=== PATIENT | female | born 1990 | race Two or more races ===

== ENCOUNTER 2021-04-14 18:51 | Emergency (ER) | payer BC, OTHER ==
[~2021-04-14] VITALS: Ht 162.6 cm; Wt 108.9 kg
[2021-04-14] MEDS ORDERED: SODIUM CHLORIDE 0.9% 1,000 ML IV ONE (19:00)
[2021-04-14 19:28] LABS: Basophils # (auto) 0.1 10 ^3/uL (0-0.2); Basophils % (auto) 1.3 % (0.0-2.0); Eosinophils # (auto) 0 10 ^3/uL (0-0.8); Eosinophils % (auto) 0.2 % (0.0-7.0); Hematocrit 38.5 % (36.0-46.0); Hemoglobin 12.9 g/dL (12.2-16.2); Lymphocytes # (auto) 0.9 10 ^3/uL (0.4-5.4); Lymphocytes % (auto) 23.3 % (10.0-50.0); Mean Corpuscular Hemoglobin 28.7 pg (28.0-32.0); Mean Corpuscular Hgb Conc. 33.6 g/dL (32.0-36.0); Mean Corpuscular Volume 85.5 fL (80.0-100.0); Monocytes # (auto) 0.3 10 ^3/uL (0-1.3); Monocytes % (auto) 6.9 % (0.0-12.0); Neutrophils # (auto) 2.7 10 ^3/uL (1.6-8.6); Neutrophils % (auto) 68.3 % (37.0-80.0); Nucleated Red Blood Cells % 0.1 %; Red Cell Distribution Width 14.1 % (11.8-14.3); White Blood Cell 3.9 10^3/uL (4.4-10.8)
[2021-04-14 19:43] LABS: Albumin 2.8 g/dL (3.4-5.0); Calcium 8.7 mg/dL (8.5-10.1)
[2021-04-14 19:46] LABS: BUN/Creatinine Ratio 8.9; Bilirubin, Total 0.3 mg/dL (0.2-1.0); Total Protein 7.2 g/dL (6.4-8.2)
[2021-04-14 19:54] VITALS: BP 147/86
[2021-04-14] MEDS ORDERED: cefTRIAXone 1GM/50ML D5W 50 ML IV ONE (20:30)
[2021-04-14] MEDS ORDERED: POTASSIUM CHL 20 Meq TABLET PO ONE (20:30)
== END 2021-04-15 00:26 | disposition home or self-care (01) ==
LOC: ER 18:51
DX: O98.512 Other viral diseases complicating pregnancy, second trimester (principal); U07.1 COVID-19; E86.0 Dehydration; Z3A.19 19 weeks gestation of pregnancy
CPT/HCPCS: 36415; 76815; 80053; 84702; 85025; 87426; 96361; 96365; 99284; J0696; J7030